=== PATIENT | female | born 1935 | race Caucasian/White ===

== ENCOUNTER → 2016-07-17 12:40 | Outpatient (CLI) | payer MEDICARE ==
[2015-10-04 09:53] VITALS: BMI 33.7
[~2016-07-17 12:40] MED LIST: ACETAMINOPHEN500 M1 PO; BAYER CHEWABLE81 MG PO; CARAFATE1 G PO; COREG 3.1253.125 MG PO; ELIQUIS2.5 MG PO; FISH OIL; FISH OIL 1,0001 CA1 PO; K-TAB10 MEQ PO; LASIX20 MG PO; LASIX40 MG PO; LOTENSIN40 MG PO; NORCO 10/325 TA1 TA1 PO; NORVASC5 MG PO; OMEGA RED PO; PERCOCET 5-3251 TAB PO; PLAVIX75 MG PO; PRAVACHOL20 MG PO; PRAVACHOL80 MG PO; PRILOSEC20 MG PO; TYLENOL PM1 TAB PO; ULTRAM50 MG PO; VITAMIN D2000 UNIT PO
== END | disposition home or self-care (01) ==
LOC: D.US 12:40
DX: M79.604 Pain in right leg (principal); R22.41 Localized swelling, mass and lump, right lower limb

== ENCOUNTER 2017-03-07 00:51 | Day surgery (SDC) | payer MEDICARE ==
[2017-03-06 12:05] LABS: BASOPHILS 0.4 % (0-2); EOSINOPHILS 4.6 % (0-7); HEMATOCRIT 34.8 % (36.0-48.0); HEMOGLOBIN 11.4 g/dL (12-16); IMMATURE GRANULOCYTES 0.3 % (0-5); LYMPHOCYTES 35.2 % (15-50); MCH 29.3 pg (26.0-34.0); MCHC 32.8 g/dL (31.0-37.0); MCV 89.5 fL (80.0-100.0); MEAN PLATELET VOLUME 9.7 fL (7.4-10.4); MONOCYTES 6.3 % (2-11); NEUTROPHILS 53.2 % (40-80); PLATELET COUNT 202 10x3/uL (130-400); RBC 3.89 10x6/uL (4.00-5.40); RDW 14.5 % (11.5-14.5); WBC 7.7 10x3/uL (4.8-10.8)
[2017-03-06 12:14] LABS: ANION GAP 14.8 mmol/L (8-16); APTT 33.6 SECONDS (22.8-39.4); CALCIUM 9.2 mg/dL (8.5-10.1); CARBON DIOXIDE 25.8 mmol/L (21.0-32.0); CREATININE - SERUM 3.3 mg/dL (0.6-1.3); INR 0.98 (0.85-1.17); POTASSIUM - SERUM 4.6 mmol/L (3.5-5.1); PROTIME 12.8 SECONDS (11.6-15.0)
[~2017-03-07] VITALS: Ht 156.2 cm; Wt 78.9 kg
[~2017-03-07 00:51] MED LIST changes: +ZYLOPRIM100 MG PO
[2017-03-07 07:32] VITALS: Ht 156.2 cm; Wt 78.9 kg
[2017-03-07] MEDS ORDERED: ULTRAM50 MG PO (10:23)
--- NOTE | 2017-03-07 11:43 | NUR ---
1020-RECD FROM SURGERY. NO PACU. DROWSY. RESP WITH EASE. LEFT ARM IN SLING. LEFT ARM DRESSING DRY AND INTACT.
--- NOTE | 2017-03-07 16:21 | NUR ---
1245--IV DC'D, PT UP TO DRESS AT THIS TIME. MALACHI WILDER 1300--DISCHARGE INSTRUCTIONS GIVEN, PT VERBALIZES UNDERSTANDING. PT OFF UNIT VIA WC. MALACHI WILDER
--- NOTE | 2017-03-11 10:51 | OP ---
PATIENT NAME: BRIGIDO GRUBBS MEDICAL RECORD: [id number] :37 LOCATION:D.OPS ADMISSION DATE: SURGEON: IRIS HAAS MD DATE OF OPERATION: 03/07/2017 PREOPERATIVE DIAGNOSES: Chronic kidney disease stage IV, diabetes, and hypertension. POSTOPERATIVE DIAGNOSES: Chronic kidney disease stage IV, diabetes, and hypertension. OPERATION PERFORMED: Creation of a left arm brachial artery to cephalic vein arteriovenous Jay type AV fistula. SURGEON: Iris Haas MD. ANESTHESIA: Nerve block and IV sedation and monitoring per X RAY CONTROL EQUIPMENT REPAIRER. REFERRING PHYSICIAN: Jesus Jones MD. PREOPERATIVE NOTE: Ms. Grubbs is a 81-year-old female with chronic kidney disease stage IV, possibly going on the stage V, having had some uremic symptoms. She was referred to me by Dr. Jones for dialysis access provision. I saw her earlier in the summer and she postponed her operation until now. She is brought to the operating room as an outpatient with plans to create a fistula or implant graft in the left upper extremity. Under nerve block with IV sedation and monitoring per X RAY CONTROL EQUIPMENT REPAIRER, the patient's left arm was prepped and draped in sterile manner. A Tena drain was used as a proximal venous tourniquet and nitroglycerin paste applied to the skin of the arm and forearm. Ultrasound examination demonstrated a very adequate brachial artery and median cubital vein in the antecubital space and I elected to perform a Jay type brachiocephalic AV fistula at that level. I had gone into of the operation with the mindset or plan to implant a prosthetic graft, most likely due to the patient's age; however, her vein was inviting and the stage of her illness should allow adequate time for this to mature. A transverse antecubital incision was made and the median cubital vein dissected from the surrounding tissues, treated with topical papaverine and ligated and divided just beyond its bifurcation. The brachial artery was exposed and controlled with Silastic loops and treated with topical papaverine. The vein was flushed with heparinized saline and hydrostatically dilated. There was a very good caliber. It was occluded proximally with a bulldog clamp. The artery was occluded with Silastic loops and opened, it was flushed proximally and distally with heparinized saline. The vein shortened and beveled, was anastomosed end-to-side to the artery with running 7-0 Prolene and the anastomotic suture line treated with Evicel prior to release of the occluding clamps and loops, which allowed immediate flow in the fistula. There was an excellent palpable pulsation and thrill and good continuous Doppler pulsatile flow in the fistula. There was good preservation of pulsatile flow in the brachial artery distal to the anastomosis and at the wrist in the radial artery. The wound was irrigated with Ancef and gentamicin solution, it was infiltrated with 0.25% Marcaine with epinephrine and then closed with interrupted inverted 3-0 Vicryl and running intracuticular 4-0 Monocryl and Dermabond glue. It was dressed with Maxorb Ag, Tegaderm and Cavilon skin prep and the patient awakened OPERATIVE REPORT [id number] BRIGIDO GRUBBS and taken to the recovery room in stable condition. There was no blood loss during the procedure and all sponges, instruments, and needles were accounted for. No drain was used and no surgical specimen was submitted for histopathology. PLAN: The patient will be discharged home today and encouraged to take Tylenol p.r.n. for pain, but she is given also a prescription for tramadol 50 mg #10. She can take one p.o. q.4-6 hours p.r.n. pain if necessary. I will have an appointment scheduled for her to see me in my office next week for wound check in followup. Hopefully, the fistula will mature and she could begin to use it as early as 6-8 weeks. TRANSINT:[id number] Voice Confirmation ID: [id number] DOCUMENT ID: [id number] IRIS HAAS MD at 1051 CC: JESUS JONES MD [id number] DICTATION DATE: 03/07/17 1034 COMPUTER PROJECT MANAGER: 03/07/17 1106 [facility] 03/07/17 [facility] [address] [facility] [place] [address]
== END 2017-03-07 13:00 | disposition home or self-care (01) ==
LOC: D.OPS 00:51 → D.PAN 08:00 → D.OPS 13:00
PROVIDERS: Internal Medicine Nephrology
DX: I12.9 Hypertensive chronic kidney disease with stage 1 through stage 4 chronic kidney disease, or unspecified chronic kidney disease (principal); E11.22 Type 2 diabetes mellitus with diabetic chronic kidney disease; N18.4 Chronic kidney disease, stage 4 (severe); Z99.2 Dependence on renal dialysis; Z95.1 Presence of aortocoronary bypass graft; Z95.5 Presence of coronary angioplasty implant and graft; I25.10 Atherosclerotic heart disease of native coronary artery without angina pectoris; Z01.812 Encounter for preprocedural laboratory examination

== ENCOUNTER 2017-07-24 06:31 | Outpatient (CLI) | payer MEDICARE ==
[~2017-07-24] VITALS: Ht 156.2 cm; Wt 79.1 kg
--- NOTE | ~2017-07-24 | HEMODYNAMI ---
PATIENT:BRIGIDO MEEHAN MEDICAL RECORD: [id number] : 37 LOCATION:[facility] ADMISSION DATE: 07/24/17 Generatedon:07/24/20178:57 Patient name: BRIGIDO MEEHAN Patient #: [id number] SSN : : 1935 Date of study: 07/24/2017 Page: Of Hemodynamic Procedure Report Patient Data Patient Demographics Procedure consent was obtained First Name: BRIGIDO Gender: Female Last Name: SHEFALI : 1935 Patient #: [id number] Age: 82 year(s) Race: Unknown Additional ID: [id number] Contact details Address: [address] [place] [address] STREET State: [place] City: [facility] Zip code: [address] Past Medical History Allergies Allergen Reaction Date Comments Reported Sulfa drugs 07/24/2017 Penicillins 07/24/2017 Other allergy 07/24/2017 ibuprofen, hydrocodone, januvia, mycin Admission Admission Data Admission Date: 07/24/2017 Admission Time: 6:31 Procedure Procedure Types Cath Procedure Diagnostic Procedure LHC Coronaries only Aortic Root Angiography Miscellaneous Procedures Moderate Sedation up to 30 minutes Procedure Description Procedure Date Procedure Date: 07/24/2017 Procedure Start Time: 8:34 Procedure End Time: 8:57 Procedure Staff Name Function Jake Ricketts MD Performing Physician Angela Salinas RT Monitor Azucena Irene RT Scrub Rosa Hinojosa RN Nurse Procedure Data Cath Procedure Fluoroscopy Diagnostic fluoroscopy Total fluoroscopy Time: 4 time: 4 min min Diagnostic fluoroscopy Total fluoroscopy dose: 599 dose: 599 mGy mGy Contrast Material Contrast Material Type Amount (ml) Isovue 300 72 Entry Location Entry Primary Successful Side Size Upsize Upsize Entry Closure Succes sful Closure Location (Fr) 1 (Fr) 2 (Fr) Remarks Device Remarks Femoral Right 5 Fr Exoseal artery Estimated blood loss: 5 ml Diagnostic catheters Device Type Used For End Catheter Placement MULTIPACK JL 4.0 5Fr Left Coronary catheter Angiography DIAGNOSTIC AR MOD 5Fr Right Coronary Catheter ([id number]) Angiography DIAGNOSTIC AR MOD 5Fr SVG Angiography Catheter ([id number]) DIAGNOSTIC IMT 5Fr Internal mammary Catheter ([id number]) arteriography MULTIPACK Pigtail 5 Fr LV Angiography catheter MULTIPACK Pigtail 5 Fr Aortic Root catheter Angiography Procedure Complications No complications Procedure Medications Medication Administration Route Dosage 0.9% NaCl I.V. 100 ml/hr Oxygen NC 2 l/min Lidocaine 2% added to field 20 Heparin Flush Bag added to field 2 bags (1000units/500ml NS) Fentanyl I.V. 50 mcg Versed I.V. 1 mg Versed I.V. 0.5 mg Fentanyl I.V. 25 mcg Fentanyl I.V. 50 mcg Versed I.V. 0.5 mg Fentanyl I.V. 25 mcg Fentanyl I.V. 50 mcg Hemodynamics Rest Heart Rate: 70 (bpm) Snapshots Pre Cath Intra NCS Post Cath Vital Signs Time Heart Resp SPO2 etCO2 NIBP (mmHg) Rhythm Pain Sedation Rate (ipm) (%) (mmHg) Status Level (bpm) 8:12:46 73 16 100 0 116/75(95) NSR 0 (11) 10(A) , No pain 8:16:58 71 16 100 15.9 126/58(103) NSR 0 (11) 10(A) , No pain 8:21:12 69 14 94 0 112/62(98) NSR 0 (11) 10(A) , No pain 8:25:20 67 14 96 0 123/65(97) NSR 0 (11) 10(A) , No pain 8:29:34 64 19 94 0 116/58(89) NSR 0 (11) 10(A) , No pain 8:33:44 64 19 98 0 116/62(88) NSR 0 (11) 10(A) , No pain 8:37:55 62 18 99 21.2 109/55(93) NSR 0 (11) 10(A) , No pain 8:42:01 72 16 96 12.1 112/68(81) NSR 0 (11) 9(A) , No pain 8:46:11 69 17 99 18.1 112/57(97) NSR 0 (11) 9(A) , No pain 8:50:29 71 23 100 36.3 90/52(67) NSR 0 (11) 9(A) , No pain 8:54:31 69 20 98 0 93/60(74) NSR 0 (11) 10(A) , No pain Medications Time Medication Route Dose Verified Delivered Reason Notes Eff ectiveness by by 8:12:06 0.9% NaCl I.V. 100ml/hr Jake Rosa used for Jamarcus Hinojosa RN procedure 8:12:20 Oxygen NC 2 l/min Jake Rosa Per Jamarcus Hinojosa RN physician 8:12:31 Lidocaine 2% added 20ml Jake Jake used for to vial Jamarcus Ricketts MD procedure field 8:12:40 Heparin Flush added 2 bags Jake Jake used for Bag to Jamarcus Ricketts MD procedure (1000units/500ml field NS) 8:29:48 Fentanyl I.V. 50 mcg Jake Rosa for Jamarcus Hinojosa RN sedation 8:30:01 Versed I.V. 1 mg Jake Rosa for Jamarcus Hinojosa RN sedation 8:33:54 Versed I.V. 0.5 mg Jake Rosa for Jamarcus Hinojosa RN sedation 8:34:02 Fentanyl I.V. 25 mcg Jake Rosa for Jamarcus Hinojosa RN sedation 8:37:24 Fentanyl I.V. 50 mcg Jake Rosa for Jamarcus Hinojosa RN sedation 8:37:32 Versed I.V. 0.5 mg Jake Rosa for Jamarcus Hinojosa RN sedation 8:41:49 Fentanyl I.V. 25 mcg Jake Rosa for Jamarcus Hinojosa RN sedation 8:46:46 Fentanyl I.V. 50 mcg Jake Rosa for Jamarcus Hinojosa RN sedation Procedure Log Time Note 7:55:45 Diagnostic Cath status Elective 7:55:48 Vishnu Calero RN sent for patient. Start room use. 7:55:50 Time tracking: Regular hours 7:56:03 Plan of Care:Hemodynamics will remain stable., Cardiac rhythm will remain stable., Comfort level will be maintained., Respiratory function will remain adequate., Patient/ family verbilizes understanding of procedure., Procedure tolerated without complication., Recovers from procedure without complications.. 8:05:25 Patient received from Pre/Post Procedure Room to CCL 2 Alert and oriented. Tansferred to table in Supine position. 8:11:48 Vital chart was started 8:12:06 0.9% NaCl 100ml/hr I.V. was administered by Rosa Hinojosa RN; used for procedure; 8:12:20 Oxygen 2 l/min NC was administered by Rosa Hinojosa RN; Per physician; 8:12:31 Lidocaine 2% 20ml vial added to field was administered by Jake Ricketts MD; used for procedure; 8:12:40 Heparin Flush Bag (1000units/500ml NS) 2 bags added to field was administered by Jake Ricketts MD; used for procedure; 8:14:34 Warm blankets applied, and octavio hugger turned on for patient comfort. 8:14:34 Correct patient and procedure confirmed by team. 8:14:35 Signed procedure consent form obtained from patient. 8:14:36 ECG and BP/O2 sat monitors applied to patient. 8:14:40 Rhythm: sinus rhythm 8:14:42 Full Disclosure recording started 8:14:55 H&P Date Dictated: 07/24/2017 Within 30 days and on chart., H&P Addendum completed by physician on day of procedure. (MUST COMPLETE FOR ALL OUTPATIENTS). 8:14:56 Pre-procedure instructions explained to patient. 8:14:56 Pre-op teaching completed and patient verbalized understanding. 8:14:57 Family in waiting room. 8:14:58 Patient NPO since Midnight. 8:15:07 Patient allergic to Sulfa drugs 8:15:20 Patient allergic to Penicillins 8:15:49 Patient allergic to Other allergyibuprofen, hydrocodone, januvia, mycin 8:15:54 Is patient on blood thinner?No 8:15:56 Patient diabetic? Yes. 8:16:40 If diabetic: On Metformin? No 8:16:44 Previous problem with sedation/anesthesia? No ? 8:16:48 Snore? Yes 8:16:49 Sleep apnea? No 8:16:50 Deviated septum? No 8:16:51 Opens mouth fully? Yes 8:16:52 Sticks out tongue? Yes 8:16:54 Airway obstruction? No ? 8:16:55 Dentures? No ? 8:16:59 Pre procedure: right dorsailis pedis pulse 1+ Palpable, but thready & weak; easily obliterated 8:17:01 Patient pain scale 0/10 ?. 8:17:08 IV patent on arrival in right hand with 0.9% NaCl at [facility]. 8:17:12 Lab results completed and on chart. 8:17:15 Right groin area was prepped with chlora-prep and draped in sterile fashion 8:17:15 Alarms reviewed by R. N. 8:17:16 Sharps counted by scrub and verified by R.N. 8:17:23 Use device set Femoral Dx 8:17:23 ACIST Syringe (16026) opened to sterile field. 8:17:24 Bag Decanter (2002S) opened to sterile field. 8:17:25 Medline Cath Pack ([id number]) opened to sterile field. 8:17:25 SHEATH 5FR [place] ([id number]) opened to sterile field. 8:17:26 DIAGNOSTIC WIRE .035 260cm J wire (411796) opened to sterile field. 8:17:27 ACIST Hand Control (56870) opened to sterile field. 8:17:28 ACIST Manifold (32348) opened to sterile field. 8:17:28 DIAGNOSTIC Multipack 5Fr catheter set (AP6426) opened to sterile field. 8:17:29 Tegaderm 4 x 4 (1626W) opened to sterile field. 8:17:30 PERCUTANEOUS ENTRY 19GA needle opened to sterile field. 8:21:33 Baseline sample Acquired. 8:27:15 Final Timeout: patient, procedure, and site verified with staff and physician. All members of the team are in agreement. 8:27:17 Right groin site verified by team. 8:27:19 Physical assessment completed. ASA score P 2 - A patient with mild systemic disease as per Jake Ricketts MD. 8:27:22 Sedation plan: IV Moderate Sedation Medication:Versed, Fentanyl 8:29:48 Fentanyl 50 mcg I.V. was administered by Rosa Hinojosa RN; for sedation; 8:30:01 Versed 1 mg I.V. was administered by Rosa Hinojosa RN; for sedation; 8:33:54 Versed 0.5 mg I.V. was administered by Rosa Hinojosa RN; for sedation; 8:34:02 Fentanyl 25 mcg I.V. was administered by Rosa Hinojosa RN; for sedation; 8:34:50 Procedure started. 8:34:53 Local anesthetic to right femoral artery with Lidocaine 2% by Jake Ricketts MD.INITIAL ACCESS ONLY 8:37:24 Fentanyl 50 mcg I.V. was administered by Rosa Hinojosa RN; for sedation; 8:37:32 Versed 0.5 mg I.V. was administered by Rosa Hinojosa RN; for sedation; 8:40:00 A 5 Fr sheath was inserted into the Right Femoral artery 8:40:06 A MULTIPACK JL 4.0 5Fr catheter was advanced over the wire and used for Left Coronary Angiography. 8:41:49 Fentanyl 25 mcg I.V. was administered by Rosa Hinojosa RN; for sedation; 8:42:04 Catheter removed. 8:43:43 A DIAGNOSTIC AR MOD 5Fr Catheter ([id number]) was advanced over the wire and used for Right Coronary Angiography. 8:43:52 A DIAGNOSTIC AR MOD 5Fr Catheter ([id number]) was advanced over the wire and used for SVG Angiography.to Diag 8:43:59 Catheter removed. 8:46:12 A DIAGNOSTIC IMT 5Fr Catheter ([id number]) was advanced over the wire and used for Internal mammary arteriography.to LAD 8:46:24 Catheter removed. 8:46:46 Fentanyl 50 mcg I.V. was administered by Rosa Hinojosa RN; for sedation; 8:47:23 A MULTIPACK Pigtail 5 Fr catheter was advanced over the wire and used for LV Angiography. unable to cross aortic valve 8:48:41 Aortic Root visualized 8:48:49 A MULTIPACK Pigtail 5 Fr catheter was advanced over the wire and used for Aortic Root Angiography. 8:51:49 Catheter removed. 8:51:59 EXOSEAL 5Fr (EX500) opened to sterile field. 8:52:05 Sheath removed intact; hemostasis achieved with Exoseal to the Right Femoral artery. 8:53:12 Procedure ended.(Physican Out) 8:53:27 Fluoroscopy time 04.00 minutes. 8:53:30 Fluoroscopy dose: 599 mGy 8:53:30 Flurop Dose total: 599 8:54:52 Contrast amount:Isovue 300 72ml. 8:54:54 Sharps counted by scrub and verified by R.N. 8:54:55 Insertion/operative site no bleeding no hematoma. 8:54:58 Post-op/insertion site Right Femoral artery dressed using a 4 x 4 and Tegaderm. 8:55:01 Post right femoral artery:stable, clean and dry 8:55:04 Post Procedure Pulses reassessed and unchanged 8:55:07 Post-procedure physical assessment completed. ASA score P 2 - A patient with mild systemic disease as per Jake Ricketts MD. 8:55:08 Post procedure rhythm: unchanged. 8:55:11 Estimated blood loss: 5 ml 8:55:12 Post procedure instruction explained to patient.Patient verbalizes understanding. 8:55:12 Patient needs reinforcement of post procedure teaching. 8:55:39 Procedure type changed to Cath procedure, Diagnostic procedure, LHC, Coronaries only, Aortic Root Angiography, Miscellaneous Procedures, Moderate Sedation up to 30 minutes 8:55:45 Procedure Complication : No complications 8:55:48 See physician's report for complete and final results. 8:56:07 Procedure and supply charges have been captured, reviewed, submitted and are correct. 8:57:20 Vital chart was stopped 8:57:21 Report given to Pre/Post Procedure Room. 8:57:25 Patient transfered to Pre/Post Procedure Room with Stretcher. 8:57:37 Procedure ended. 8:57:37 Full Disclosure recording stopped 8:57:41 End room use (Document Last) Device Usage Item Name Manufacture Quantity Catalog Number Hospital Part Current Mini mal Lot# / Charge Number Stock Stock Serial# Code ACIST Acist 1 [id number] 243394 [id number] 20 Syringe Medical (64574) Systems Inc Bag Decanter Microtek 1 2001S 085439 36223 570956 5 () Medical Inc. Medline Cath Cardinal 1 [id number] 03570 137061 5 Pack Health ([id number]) SHEATH 5FR Terumo 1 HKJ949 154478 414867 465095 40 [place] (RQG547) DIAGNOSTIC St Evan 1 834697 401946 742700 966292 30 WIRE .035 260cm J wire (532357) ACIST Hand Acist 1 50694 581474 348326 960593 5 Control Medical (52193) Systems Inc ACIST Acist 1 26437 873820 980773 034775 5 Manifold Medical (57728) Systems Inc DIAGNOSTIC Cardinal 1 WY6581 981573 46769 741683 30 Multipack Health 5Fr catheter set (SN7488) Tegaderm 4 x 3M 1 1626W 397191 903872 471974 5 4 (1626W) PERCUTANEOUS Cook [facility] 1 J49789 627856 187254 5 ENTRY 19GA needle MULTIPACK JL Cardinal 1 380805 5 4.0 5Fr Health catheter DIAGNOSTIC Cardinal 1 [id number] 634522 876128 242707 15 AR MOD 5Fr Health Catheter (476890N) DIAGNOSTIC [place] 1 [id number] 543942 885201 13152 5 IMT 5Fr Scientific Catheter ([id number]) MULTIPACK Cardinal 1 715692 5 Pigtail 5 Fr Health catheter EXOSEAL 5Fr Cardinal 1 EX500 608376 657822 629279 10 (EX500) Health Signature Audit [place] Stage Time Signature Unsigned Intra-Procedure 07/24/2017 Angela 8:57:53 AM Counts RT(R) Signatures Monitor : Angela Signature : Counts RT Date : Time : [place] [id number] [place] [address]
[2017-07-24] MEDS ORDERED: FENOGLIDE40 MG PO (06:44)
[2017-07-24] MEDS ORDERED: LIPITOR20 MG PO (06:44)
[2017-07-24] MEDS ORDERED: BAYER CHEWABLE81 MG PO (06:45)
[2017-07-24 07:02] LABS: BASOPHILS 0.9 % (0-2); EOSINOPHILS 7.7 % (0-7); HEMATOCRIT 33.1 % (36.0-48.0); HEMOGLOBIN 10.6 g/dL (12-16); IMMATURE GRANULOCYTES 0.2 % (0-5); LYMPHOCYTES 39.2 % (15-50); MCV 90.7 fL (80.0-100.0); MEAN PLATELET VOLUME 11.3 fL (7.4-10.4); MONOCYTES 5.5 % (2-11); NEUTROPHILS 46.5 % (40-80); PLATELET COUNT 200 10x3/uL (130-400); RBC 3.65 10x6/uL (4.00-5.40); RDW 15.9 % (11.5-14.5); WBC 4.7 10x3/uL (4.8-10.8)
[2017-07-24 07:05] VITALS: BP 121/47; Ht 156.2 cm; Wt 79.1 kg
[2017-07-24 07:11] LABS: ANION GAP 14.6 mmol/L (8-16); CARBON DIOXIDE 24.3 mmol/L (21.0-32.0); CREATININE - SERUM 3.8 mg/dL (0.6-1.3); POTASSIUM - SERUM 4.9 mmol/L (3.5-5.1)
== END 2017-07-24 11:35 | disposition home or self-care (01) ==
LOC: D.CATH 06:31
PROVIDERS: Internal Medicine Cardiovascular Disease
DX: I25.119 Atherosclerotic heart disease of native coronary artery with unspecified angina pectoris (principal); I70.0 Atherosclerosis of aorta; Z01.812 Encounter for preprocedural laboratory examination

== ENCOUNTER → 2017-11-10 11:20 | Outpatient (CLI) | payer MEDICARE ==
[2017-07-24 07:05] VITALS: BMI 32.4
[~2017-11-10 11:20] MED LIST changes: +FENOGLIDE40 MG PO; +LIPITOR20 MG PO
== END | disposition home or self-care (01) ==
LOC: D.NM 11:20
DX: R79.1 Abnormal coagulation profile (principal); R14.0 Abdominal distension (gaseous)

== ENCOUNTER → 2018-02-17 11:03 | Outpatient (CLI) | payer MEDICARE ==
[2017-07-24 07:05] VITALS: BMI 32.4
[~2018-02-17 11:03] MED LIST changes: +LASIX80 MG PO; +VIBRAMYCIN 100100 MG PO
== END | disposition home or self-care (01) ==
LOC: D.RT 11:03
DX: R06.00 Dyspnea, unspecified (principal)

== ENCOUNTER 2018-02-20 08:07 | Day surgery (SDC) | payer MEDICARE ==
[~2018-02-20] VITALS: Ht 156.2 cm; Wt 73.3 kg
--- NOTE | ~2018-02-20 | OP ---
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 OPERATION PERFORMED: Implantation of Propaten PTFE AV graft, brachial artery to proximal basilic vein, left arm. SURGEON: Iris Haas MD ANESTHESIA: General per TEACHING PASTOR. PREOPERATIVE NOTE: Ms. Grubbs is a very nice 82-year-old woman with severe renal insufficiency and she will soon need dialysis. A year ago, I created a left brachiocephalic AV fistula, which has never matured and has had at least 1 intervention at [facility]. She was scheduled back in the hospital today with plans to perform another fistulogram and possibly another balloon angioplasty type procedure versus open intervention. On presentation today, it is quite obvious that her fistula is thrombosed and I believe she should have the graft implanted. Under general anesthesia, the patient is placed in supine position, prepped and draped in a sterile manner. Two incisions were made on the medial aspect of the arm; one just below the axilla to expose the basilic vein, which was controlled with Silastic loops, and the other just above and at the antecubital incision where the previous axsn-ki-uoxofo anastomosis was exposed and the artery controlled proximally and distally with Silastic loops. I chose a 6-mm Propaten standard wall thickness PTFE graft, one end was bevelled. The vein was opened and flushed with heparinized saline and the graft was then sutured to the vein end of graft to side of vein with running 6-0 Prolene. The graft was then placed in a superficial tunnel, which in a rainbow configuration brought the graft back to the distal incision where it was shortened and beveled. The artery was occluded with Silastic loops. The old graft was transected and debrided back to the old graft artery anastomosis. Here, there was good lumen and good inflow. The artery was flushed proximally and distally with heparinized saline and the graft was shortened and slightly bevelled and anastomosed end-to-side of the artery, end of graft to side of artery, with running 6-0 Prolene, and on completion, excellent flow was established within the new graft. Evicel was used on the suture line in the axilla, but no sealant was used on the distal suture line. The wounds were irrigated with Ancef/gentamicin solution and closed with interrupted inverted 3-0 Vicryl and running intracuticular 4-0 Monocryl stitch. The incisions were sealed with glue and dressed with Maxorb Ag, Tegaderm, and Cavilon skin prep and the patient awakened and taken to recovery room. Blood loss was insignificant and unreplaced. All sponges, instruments and needles were accounted for. No drain was used. No surgical specimen was submitted. OPERATIVE REPORT [id number] SHEFALINAUNJINNY The patient has no one with her today. She rode the bus here this morning and plan to ride the bus home postop. I have told her that I think that is not appropriate. She is going to spend tonight here in the hospital in observation. If she needs to stay longer than that depending on her condition and the evaluation of her medical physicians, well certainly she can. I will plan to follow up with her in my office within the next 2 weeks. TRANSINT:[id number] Voice Confirmation ID: [id number] DOCUMENT ID: [id number] IRIS HAAS MD at 1054 CC: JESUS RUVALCABA MD [id number] DICTATION DATE: 02/20/18 1458 FOLLOW UP SPECIALIST: 02/20/18 1610 [facility] 02/21/[address] [facility] [address] [place] [id number]
[~2018-02-20 08:07] MED LIST changes: -LASIX80 MG PO; -VIBRAMYCIN 100100 MG PO
[2018-02-20 08:33] LABS: BASOPHILS 1.3 % (0-2); EOSINOPHILS 3.1 % (0-7); HEMATOCRIT 34.9 % (36.0-48.0); HEMOGLOBIN 11.3 g/dL (12-16); LYMPHOCYTES 42.2 % (15-50); MCH 29.2 pg (26.0-34.0); MCHC 32.4 g/dL (31.0-37.0); MCV 90.2 fL (80.0-100.0); MEAN PLATELET VOLUME 12.3 fL (7.4-10.4); NEUTROPHILS 49.4 % (40-80); RBC 3.87 10x6/uL (4.00-5.40); RDW 16.6 % (11.5-14.5); WBC 4.5 10x3/uL (4.8-10.8)
[2018-02-20 08:45] LABS: PLATELET COUNT 148 10x3/uL (130-400)
[2018-02-20 08:47] LABS: ANION GAP 11.5 mmol/L (8-16); CALCIUM 8.9 mg/dL (8.5-10.1); CARBON DIOXIDE 26.4 mmol/L (21.0-32.0); CREATININE - SERUM 4.3 mg/dL (0.6-1.3); POTASSIUM - SERUM 3.9 mmol/L (3.5-5.1)
[2018-02-20 08:54] LABS: INR 1.26 (0.85-1.17); PROTIME 15.4 SECONDS (11.6-15.0)
[2018-02-20 11:08] VITALS: BMI 30.3
[2018-02-20 16:42] VITALS: BP 119/74; Ht 156.2 cm; Wt 73.3 kg
[2018-02-20 20:33] VITALS: BP 117/68
[2018-02-20 23:44] VITALS: BP 111/49
[2018-02-21 06:30] VITALS: BP 125/96
[2018-02-21 09:15] VITALS: BP 105/51
== END 2018-02-21 18:00 | disposition home or self-care (01) ==
LOC: D.OPS 08:07 → D.M2 15:43 → D.OPS 16:10
PROVIDERS: Surgery
DX: T82.868A Thrombosis due to vascular prosthetic devices, implants and grafts, initial encounter (principal); E11.22 Type 2 diabetes mellitus with diabetic chronic kidney disease; I12.0 Hypertensive chronic kidney disease with stage 5 chronic kidney disease or end stage renal disease; N18.5 Chronic kidney disease, stage 5; I25.10 Atherosclerotic heart disease of native coronary artery without angina pectoris; M32.9 Systemic lupus erythematosus, unspecified; M19.90 Unspecified osteoarthritis, unspecified site; Z01.812 Encounter for preprocedural laboratory examination

== ENCOUNTER 2018-03-13 14:14 | Emergency (ER) | payer MEDICARE ==
[~2018-03-13] VITALS: Ht 156.2 cm; Wt 74.1 kg
[2018-03-13 14:23] VITALS: Ht 156.2 cm; Wt 74.1 kg
[2018-03-13] MEDS ORDERED: VIBRAMYCIN 100100 MG PO (16:46)
[2018-03-13 18:29] VITALS: BP 107/60
== END 2018-03-13 18:32 | disposition home or self-care (01) ==
LOC: D.ER 14:14
DX: S01.81XA Laceration without foreign body of other part of head, initial encounter (principal); W18.30XA Fall on same level, unspecified, initial encounter; Y93.89 Activity, other specified; Y92.89 Other specified places as the place of occurrence of the external cause; S00.83XA Contusion of other part of head, initial encounter; I10 Essential (primary) hypertension; I25.10 Atherosclerotic heart disease of native coronary artery without angina pectoris; M32.9 Systemic lupus erythematosus, unspecified

== ENCOUNTER 2018-03-17 09:56 | Emergency (ER) | payer MEDICARE ==
[~2018-03-17] VITALS: Ht 156.2 cm; Wt 74.1 kg
[~2018-03-17 09:56] MED LIST changes: +VIBRAMYCIN 100100 MG PO
[2018-03-17 10:01] VITALS: BP 119/59; Ht 156.2 cm; Wt 74.1 kg
== END 2018-03-17 11:02 | disposition home or self-care (01) ==
LOC: D.ER 09:56
DX: S01.511D Laceration without foreign body of lip, subsequent encounter (principal); X58.XXXD Exposure to other specified factors, subsequent encounter; Z48.02 Encounter for removal of sutures; I10 Essential (primary) hypertension; I25.810 Atherosclerosis of coronary artery bypass graft(s) without angina pectoris; M32.9 Systemic lupus erythematosus, unspecified

== ENCOUNTER 2018-03-20 08:00 | Outpatient (CLI) | payer MEDICARE ==
[2018-03-20] MEDS ORDERED: COREG 3.1253.125 MG PO (22:19)
[2018-03-20] MEDS ORDERED: LASIX80 MG PO (22:20)
[2018-03-21 13:30] VITALS: BMI 29.7
== END 2018-03-22 23:59 | disposition home or self-care (01) ==
LOC: D.OPS 08:00
DX: I12.9 Hypertensive chronic kidney disease with stage 1 through stage 4 chronic kidney disease, or unspecified chronic kidney disease (principal); N18.6 End stage renal disease; D61.818 Other pancytopenia; E11.22 Type 2 diabetes mellitus with diabetic chronic kidney disease; Z99.2 Dependence on renal dialysis; R19.7 Diarrhea, unspecified; E87.6 Hypokalemia; E03.9 Hypothyroidism, unspecified

== ENCOUNTER 2018-03-20 17:02 | Inpatient (IN) | payer MEDICARE ==
[~2018-03-20] VITALS: Ht 156.2 cm; Wt 70.9 kg
[2018-03-20 18:13] LABS: BASOPHILS 0.2 % (0-2); EOSINOPHILS 0.9 % (0-7); HEMATOCRIT 33.7 % (36.0-48.0); HEMOGLOBIN 11.4 g/dL (12-16); IMMATURE GRANULOCYTES 0.2 % (0-5); LYMPHOCYTES 39.9 % (15-50); MCH 29.1 pg (26.0-34.0); MCHC 33.8 g/dL (31.0-37.0); MONOCYTES 5.4 % (2-11); NEUTROPHILS 53.4 % (40-80); RBC 3.92 10x6/uL (4.00-5.40); RDW 20.1 % (11.5-14.5); WBC 4.6 10x3/uL (4.8-10.8)
[2018-03-20 18:17] LABS: PLATELET COUNT 100 10x3/uL (130-400)
[2018-03-20 18:33] LABS: ALBUMIN 3.2 g/dL (3.4-5.0); ALKALINE PHOSPHATASE 46 U/L (46-116); ALT (SGPT) 47 U/L (10-68); CALC OSMOLALITY 318 mosm/kg (275-300); CALCIUM 9.1 mg/dL (8.5-10.1); CARBON DIOXIDE 18.9 mmol/L (21.0-32.0); CHLORIDE - SERUM 113 mmol/L (98-107); CREATININE - SERUM 6.9 mg/dL (0.6-1.3); GLUCOSE 103 mg/dL (74-106); POTASSIUM - SERUM 3.9 mmol/L (3.5-5.1); SODIUM 146 mmol/L (136-145); UREA NITROGEN 91 mg/dL (7-18); eGFR NON AFRICAN AMERICAN 6 mL/min (90-120)
[2018-03-20 18:46] LABS: AMYLASE - SERUM 36 U/L (25-115); CKMB 5.3 U/L (0.0-3.6); CREATINE KINASE 179 UL (21-215); LIPASE 337 U/L (73-393)
[2018-03-20 19:11] LABS: APPEARANCE CLEAR (CLEAR); BILIRUBIN NEGATIVE (NEGATIVE); COLOR YELLOW (YELLOW); GLUCOSE NEGATIVE (NEGATIVE); KETONE NEGATIVE (NEGATIVE); NITRITE NEGATIVE (NEGATIVE); PROTEIN TRACE mg/dL (NEGATIVE); SPECIFIC GRAVITY 1.015 (1.005-1.020); UROBILINOGEN NORMAL (NORMAL)
[2018-03-20 19:12] LABS: WHITE CELLS - URINE OCC /hpf (0-5)
[2018-03-20 19:13] LABS: BACTERIA MODERATE /hpf (NONE SEEN); RED CELLS - URINE OCC /hpf (0-5)
[2018-03-20 19:19] LABS: PRO BNP 411285 pg/mL (0-450)
[2018-03-20 19:23] LABS: TROPONIN-I 0.134 ng/mL (0.000-0.060)
[2018-03-20 19:30] VITALS: BP 130/69
[2018-03-20 20:30] VITALS: BP 121/81
[2018-03-20] MEDS ORDERED: COREG 3.1253.125 MG PO (22:19)
[2018-03-20] MEDS ORDERED: LASIX80 MG PO (22:20)
[2018-03-20 22:30] VITALS: BP 120/70
[2018-03-21 01:32] VITALS: BP 120/70
[2018-03-21 13:30] VITALS: Ht 156.2 cm; Wt 70.9 kg
[2018-03-22 05:59] VITALS: BP 103/58
[2018-03-22 06:49] LABS: BASOPHILS 0.2 % (0-2); EOSINOPHILS 2.7 % (0-7); HEMOGLOBIN 10.9 g/dL (12-16); IMMATURE GRANULOCYTES 0.2 % (0-5); LYMPHOCYTES 31.5 % (15-50); MCH 28.9 pg (26.0-34.0); MCHC 34.1 g/dL (31.0-37.0); MCV 84.9 fL (80.0-100.0); MONOCYTES 5.2 % (2-11); NEUTROPHILS 60.2 % (40-80); PLATELET COUNT 82 10x3/uL (130-400); RBC 3.77 10x6/uL (4.00-5.40); RDW 20.9 % (11.5-14.5); WBC 4.5 10x3/uL (4.8-10.8)
[2018-03-22 07:11] LABS: ALBUMIN 2.8 g/dL (3.4-5.0); ANION GAP 16.5 mmol/L (8-16); BILIRUBIN - TOTAL 2.17 mg/dL (0.2-1.3); CALCIUM 8.8 mg/dL (8.5-10.1); CARBON DIOXIDE 21.1 mmol/L (21.0-32.0); PHOSPHOROUS 3.7 mg/dL (2.5-4.9); POTASSIUM - SERUM 3.6 mmol/L (3.5-5.1); PROTEIN - SERUM 6.3 g/dL (6.4-8.2); T4 THYROXIN - FREE 0.95 ng/dL (0.76-1.46)
[2018-03-22 08:18] LABS: PLATELET ESTIMATE DECREASED
[2018-03-22 11:46] LABS: APTT 34.8 SECONDS (22.8-39.4); INR 1.41 (0.85-1.17); PROTIME 16.7 SECONDS (11.6-15.0)
[2018-03-22 21:04] VITALS: BP 107/64
[2018-03-23 01:13] VITALS: BP 100/52
[2018-03-23 05:07] LABS: BASOPHILS 0.2 % (0-2); EOSINOPHILS 1.5 % (0-7); HEMATOCRIT 33.5 % (36.0-48.0); HEMOGLOBIN 11.1 g/dL (12-16); LYMPHOCYTES 34.6 % (15-50); MCH 28.5 pg (26.0-34.0); MCHC 33.1 g/dL (31.0-37.0); MCV 85.9 fL (80.0-100.0); MONOCYTES 4.2 % (2-11); NEUTROPHILS 59.5 % (40-80); RDW 20.9 % (11.5-14.5); WBC 5.2 10x3/uL (4.8-10.8)
[2018-03-23 05:15] LABS: PLATELET COUNT 106 10x3/uL (130-400)
[2018-03-23 05:30] LABS: ALBUMIN 2.7 g/dL (3.4-5.0); ANION GAP 18.2 mmol/L (8-16); BILIRUBIN - TOTAL 2.02 mg/dL (0.2-1.3); CALCIUM 8.6 mg/dL (8.5-10.1); CARBON DIOXIDE 21.4 mmol/L (21.0-32.0); CREATININE - SERUM 5.1 mg/dL (0.6-1.3); POTASSIUM - SERUM 3.6 mmol/L (3.5-5.1); PROTEIN - SERUM 5.9 g/dL (6.4-8.2)
[2018-03-23 06:12] VITALS: BP 108/60
[2018-03-23 07:55] VITALS: BP 109/54
[2018-03-23 11:55] VITALS: BP 115/60
[2018-03-23 16:29] VITALS: BP 102/51
[2018-03-23 20:00] VITALS: BP 110/70
[2018-03-24 04:00] VITALS: BP 112/63
[2018-03-24 05:34] LABS: BASOPHILS 0.2 % (0-2); EOSINOPHILS 2.6 % (0-7); HEMATOCRIT 32.1 % (36.0-48.0); LYMPHOCYTES 36.1 % (15-50); MCH 29.5 pg (26.0-34.0); MCHC 34.3 g/dL (31.0-37.0); MCV 86.1 fL (80.0-100.0); MONOCYTES 5.4 % (2-11); NEUTROPHILS 55.7 % (40-80); PLATELET COUNT 99 10x3/uL (130-400); RBC 3.73 10x6/uL (4.00-5.40); RDW 21.3 % (11.5-14.5)
[2018-03-24 06:18] LABS: ALBUMIN 2.7 g/dL (3.4-5.0); ANION GAP 18.7 mmol/L (8-16); BILIRUBIN - TOTAL 1.92 mg/dL (0.2-1.3); CALCIUM 8.5 mg/dL (8.5-10.1); CARBON DIOXIDE 21.6 mmol/L (21.0-32.0); CREATININE - SERUM 5.6 mg/dL (0.6-1.3); PHOSPHOROUS 3.3 mg/dL (2.5-4.9); POTASSIUM - SERUM 3.3 mmol/L (3.5-5.1); PROTEIN - SERUM 6.3 g/dL (6.4-8.2)
[2018-03-24 08:03] VITALS: BP 102/57
[2018-03-24 11:18] LABS: HEP B CORE AB TOTAL Negative (Negative)
[2018-03-24 16:13] VITALS: BP 110/59
[2018-03-24 23:42] VITALS: BP 109/57
[2018-03-25 06:30] LABS: BASOPHILS 0.2 % (0-2); EOSINOPHILS 2.1 % (0-7); HEMOGLOBIN 10.9 g/dL (12-16); IMMATURE GRANULOCYTES 0.2 % (0-5); LYMPHOCYTES 34.8 % (15-50); MCH 28.7 pg (26.0-34.0); MCV 86.8 fL (80.0-100.0); MONOCYTES 6.8 % (2-11); NEUTROPHILS 55.9 % (40-80); PLATELET COUNT 100 10x3/uL (130-400); RDW 21.1 % (11.5-14.5); WBC 5.3 10x3/uL (4.8-10.8)
[2018-03-25 06:34] VITALS: BP 112/71
[2018-03-25 06:51] LABS: ALBUMIN 2.9 g/dL (3.4-5.0); ANION GAP 15.3 mmol/L (8-16); BILIRUBIN - TOTAL 2.01 mg/dL (0.2-1.3); CALCIUM 8.7 mg/dL (8.5-10.1); CARBON DIOXIDE 22.7 mmol/L (21.0-32.0); CREATININE - SERUM 5.3 mg/dL (0.6-1.3); PROTEIN - SERUM 6.7 g/dL (6.4-8.2)
[2018-03-25 07:48] VITALS: BP 109/60
[2018-03-25 11:39] VITALS: BP 113/66
[2018-03-25 21:13] VITALS: BP 107/61
[2018-03-26 05:42] LABS: BASOPHILS 0.5 % (0-2); EOSINOPHILS 2.3 % (0-7); HEMATOCRIT 31.2 % (36.0-48.0); HEMOGLOBIN 10.6 g/dL (12-16); IMMATURE GRANULOCYTES 0.2 % (0-5); LYMPHOCYTES 35.8 % (15-50); MCH 29.3 pg (26.0-34.0); MCV 86.2 fL (80.0-100.0); NEUTROPHILS 56.2 % (40-80); PLATELET COUNT 109 10x3/uL (130-400); RBC 3.62 10x6/uL (4.00-5.40); RDW 20.7 % (11.5-14.5); WBC 4.4 10x3/uL (4.8-10.8)
[2018-03-26 06:03] LABS: ALBUMIN 2.6 g/dL (3.4-5.0); ANION GAP 12.9 mmol/L (8-16); BILIRUBIN - TOTAL 2.06 mg/dL (0.2-1.3); CALCIUM 8.6 mg/dL (8.5-10.1); CARBON DIOXIDE 25.8 mmol/L (21.0-32.0); CREATININE - SERUM 4.2 mg/dL (0.6-1.3); PHOSPHOROUS 3.6 mg/dL (2.5-4.9); POTASSIUM - SERUM 3.7 mmol/L (3.5-5.1); PROTEIN - SERUM 6.1 g/dL (6.4-8.2)
[2018-03-26 06:07] VITALS: BP 96/45
== END 2018-03-26 16:17 | disposition home or self-care (01) | DRG 682 ==
LOC: D.ER 17:02 → D.EDHOLD 19:55 → OBSVTIME 19:55 → D.EDHOLD 19:55 → D.M2 20:56
PROVIDERS: Family Medicine; Internal Medicine
PROC: 5A1D70Z Performance of Urinary Filtration, Intermittent, Less than 6 Hours Per Day (ICD-10-PCS; principal; 2018-03-21)
DX: I12.0 Hypertensive chronic kidney disease with stage 5 chronic kidney disease or end stage renal disease (principal); N18.6 End stage renal disease; D61.818 Other pancytopenia; E11.22 Type 2 diabetes mellitus with diabetic chronic kidney disease; Z99.2 Dependence on renal dialysis; R19.7 Diarrhea, unspecified; E87.6 Hypokalemia; E03.9 Hypothyroidism, unspecified

== ENCOUNTER → 2018-04-17 15:12 | Outpatient (CLI) | payer MEDICARE ==
[2018-03-21 13:30] VITALS: BMI 29.7
[~2018-04-17 15:12] MED LIST changes: +LASIX80 MG PO
== END | disposition home or self-care (01) ==
LOC: D.US 14:30
DX: I82.4Z2 Acute embolism and thrombosis of unspecified deep veins of left distal lower extremity (principal); R22.42 Localized swelling, mass and lump, left lower limb; M79.662 Pain in left lower leg

== ENCOUNTER → 2018-05-23 11:21 | Outpatient (CLI) | payer MEDICARE | END | disposition home or self-care (01) | LOC: D.RAD 11:21 | DX: M25.572 Pain in left ankle and joints of left foot (principal) ==

== ENCOUNTER 2018-08-11 18:39 | Emergency (ER) | payer MEDICARE ==
[~2018-08-11] VITALS: Ht 156.2 cm; Wt 63.6 kg
[2018-08-11 19:15] VITALS: Ht 156.2 cm; Wt 63.6 kg
[2018-08-12] MEDS ORDERED: HYDROCORTISONE30 G8 TOPICAL (00:23)
[2018-08-12 00:31] VITALS: BP 143/65
== END 2018-08-12 00:34 | disposition home or self-care (01) ==
LOC: D.ER 18:39
DX: K64.9 Unspecified hemorrhoids (principal)

== ENCOUNTER 2018-09-12 20:31 | Emergency (ER) | payer MEDICARE ==
[~2018-09-12] VITALS: Ht 156.2 cm; Wt 64.0 kg
[~2018-09-12 20:31] MED LIST changes: +HYDROCORTISONE30 G8 TOPICAL
[2018-09-12 20:42] VITALS: Ht 156.2 cm; Wt 64.0 kg
[2018-09-12] MEDS ORDERED: ZOFRAN ODT4 MG/UDTAB PO (21:40)
[2018-09-12 21:53] VITALS: BP 90/52
== END 2018-09-12 21:53 | disposition home or self-care (01) ==
LOC: D.ER 20:31
DX: I12.9 Hypertensive chronic kidney disease with stage 1 through stage 4 chronic kidney disease, or unspecified chronic kidney disease (principal); N18.9 Chronic kidney disease, unspecified; Z99.2 Dependence on renal dialysis

== ENCOUNTER 2018-09-14 06:16 | Inpatient (IN) | payer MEDICARE ==
[~2018-09-14] VITALS: Ht 156.2 cm; Wt 64.1 kg
[2018-09-14] VITALS (8 sets, daily range): BP systolic 67–92; BP diastolic 41–51; Ht 156.2 cm; Wt 64.1 kg
[~2018-09-14 06:16] MED LIST changes: +ZOFRAN ODT4 MG/UDTAB PO
[2018-09-14 07:05] LABS: BASOPHILS 0.1 % (0-2); EOSINOPHILS 0.1 % (0-7); HEMATOCRIT 40.6 % (36.0-48.0); HEMOGLOBIN 13.4 g/dL (12-16); IMMATURE GRANULOCYTES 0.3 % (0-5); LYMPHOCYTES 9.2 % (15-50); MCH 29.9 pg (26.0-34.0); MCV 90.6 fL (80.0-100.0); MEAN PLATELET VOLUME 11.6 fL (7.4-10.4); MONOCYTES 4.7 % (2-11); NEUTROPHILS 85.6 % (40-80); RBC 4.48 10x6/uL (4.00-5.40); WBC 13.9 10x3/uL (4.8-10.8)
[2018-09-14 07:10] LABS: PLATELET COUNT 206 10x3/uL (130-400)
[2018-09-14 07:35] LABS: INR 1.5 (0.85-1.17); PROTIME 17.6 SECONDS (11.6-15.0)
[2018-09-14 07:36] LABS: ALBUMIN 2.8 g/dL (3.4-5.0); ALKALINE PHOSPHATASE 118 U/L (46-116); ALT (SGPT) 20 U/L (10-68); BILIRUBIN - TOTAL 1.43 mg/dL (0.2-1.3); CALC OSMOLALITY 291 mosm/kg (275-300); CALCIUM 9.6 mg/dL (8.5-10.1); CHLORIDE - SERUM 94 mmol/L (98-107); CKMB 6.3 U/L (0.0-3.6); CREATINE KINASE 218 UL (21-215); CREATININE - SERUM 6.1 mg/dL (0.6-1.3); GLUCOSE 108 mg/dL (74-106); LIPASE 125 U/L (73-393); MAGNESIUM - SERUM 1.7 mg/dL (1.8-2.4); PROTEIN - SERUM 8.2 g/dL (6.4-8.2); SODIUM 139 mmol/L (136-145); THYROID STIMULATING HORMONE 2.38 uIU/mL (0.36-3.74); UREA NITROGEN 48 mg/dL (7-18); eGFR NON AFRICAN AMERICAN 7 mL/min (90-120)
[2018-09-14 07:39] LABS: POTASSIUM - SERUM 2.9 mmol/L (3.5-5.1)
[2018-09-14 07:40] LABS: TROPONIN-I 0.322 ng/mL (0.000-0.060)
[2018-09-14 09:01] LABS: PRO BNP 286066 pg/mL (0-450)
[2018-09-14 11:37] LABS: CKMB 5.1 U/L (0.0-3.6); CREATINE KINASE 166 UL (21-215)
[2018-09-14 11:39] LABS: TROPONIN-I 0.403 ng/mL (0.000-0.060)
[2018-09-14 16:49] LABS: CKMB 7.2 U/L (0.0-3.6); CREATINE KINASE 210 UL (21-215)
[2018-09-14 16:56] LABS: POTASSIUM - SERUM 3.6 mmol/L (3.5-5.1); TROPONIN-I 0.985 ng/mL (0.000-0.060)
== END 2018-09-14 23:15 | DRG 871 ==
LOC: D.ER 06:16 → D.EDHOLD 08:01 → D.ICU 09:59
PROVIDERS: Emergency Medicine; Family Medicine; ADMIT Internal Medicine Nephrology; ATTEND Internal Medicine Nephrology
PROC: 5A1935Z Respiratory Ventilation, Less than 24 Consecutive Hours (ICD-10-PCS; principal; 2018-09-14)
PROC: 0BH17EZ Insertion of Endotracheal Airway into Trachea, Via Natural or Artificial Opening (ICD-10-PCS; 2018-09-14)
PROC: 05H633Z Insertion of Infusion Device into Left Subclavian Vein, Percutaneous Approach (ICD-10-PCS; 2018-09-14)
DX: A41.9 Sepsis, unspecified organism (principal); I21.A1 Myocardial infarction type 2; I50.23 Acute on chronic systolic (congestive) heart failure; J96.00 Acute respiratory failure, unspecified whether with hypoxia or hypercapnia; J69.0 Pneumonitis due to inhalation of food and vomit; N18.6 End stage renal disease; I13.2 Hypertensive heart and chronic kidney disease with heart failure and with stage 5 chronic kidney disease, or end stage renal disease; E87.2 Acidosis; R65.11 Systemic inflammatory response syndrome (SIRS) of non-infectious origin with acute organ dysfunction; I95.89 Other hypotension; E11.22 Type 2 diabetes mellitus with diabetic chronic kidney disease; Z99.2 Dependence on renal dialysis; I25.10 Atherosclerotic heart disease of native coronary artery without angina pectoris; I46.9 Cardiac arrest, cause unspecified; I35.0 Nonrheumatic aortic (valve) stenosis; Z66 Do not resuscitate; I95.9 Hypotension, unspecified; E87.6 Hypokalemia

== ENCOUNTER 2018-09-14 06:16 | Outpatient (CLI) | payer MEDICARE ==
[2018-09-14 12:46] VITALS: BMI 26.2
== END 2018-09-14 08:01 | disposition other institution (70) ==
LOC: D.OPS 06:16
PROVIDERS: ATTEND Internal Medicine Nephrology
DX: R07.9 Chest pain, unspecified (principal)